=== PATIENT | male | born 1955 | race Caucasian/White ===

== ENCOUNTER → 2024-10-08 09:20 | Outpatient (REF) | payer MEDICARE, OTHER, MEDICAID, SELFPAY ==
[2024-10-08 12:12] LABS: Blood Urea Nitrogen 22 mg/dl (9-20); Calcium 9.2 mg/dl (8.4-10.2); Carbon Dioxide 24 mmol/L (22-30); Chloride 108 mmol/L (98-107); Glucose 98 mg/dl (70-99); Potassium 4.6 mmol/L (3.5-5.1); Sodium 141 mmol/L (135-145); eGFR > 60.00
== END ==
LOC: REG 09:20
PROVIDERS: ATTENDING PHYSICIAN Surgery; FAMILY PHYSICIAN Nurse Practitioner Family
DX: K40.90 Unilateral inguinal hernia, without obstruction or gangrene, not specified as recurrent (principal)
CPT/HCPCS: 36415; 80048

== ENCOUNTER → 2024-10-12 12:57 | Outpatient (REF) | payer MEDICARE, OTHER, MEDICAID, SELFPAY | LOC: RAD 12:57 | PROVIDERS: ATTENDING PHYSICIAN Surgery; FAMILY PHYSICIAN Nurse Practitioner Family | DX: K40.90 Unilateral inguinal hernia, without obstruction or gangrene, not specified as recurrent (principal) | CPT/HCPCS: 36415; 74177; 93005; Q9967 ==

== ENCOUNTER 2024-11-01 06:21 | Day surgery (SDC) | payer MEDICARE, OTHER, MEDICAID, SELFPAY ==
[2024-10-12 14:01] VITALS: BMI 27.1
--- NOTE | 2024-10-13 13:05 | PTCARENOTE ---
Abnormal ECG done 10/12/[address] Whitley, no further interventions requested
[2024-11-01] VITALS (11 sets, daily range): BP systolic 124–174; BP diastolic 79–103; BMI 27.1
[2024-11-01] MEDS: TYLENOL 1000 MG PO (10:34)
[2024-11-01] MEDS: NORMOSOL-R/PLASMALYTE-A 1000 IV (10:51)
[2024-11-01] MEDS: HEPARIN 5000 UNITS SC (12:16)
--- NOTE | 2024-11-01 14:33 | W.IMMPOSTOP ---
Surgical Immed Post Op Note
-
Primary Surgeon: Shara
Assisting: José Miguel YU
Pre-op Diagnosis: Right inguinal hernia
Post-op Diagnosis: Same
Procedure Performed: Robot assisted laparoscopic repair right inguinal hernia
Anesthesia Type: GETA
Specimen / Cultures: None
Estimated Blood Loss: 20cc
Complications: None immediate
Operative Findings: Very large right indirect defect with very deep and thickened sac, totally reduced; XL B/L MID 3D Max
--- NOTE | 2024-11-01 14:35 | OR.RPT ---
Operative Report
Operative Report
Primary Surgeon: Shara
Assisting: José Miguel YU
Pre-op Diagnosis: Right inguinal hernia
Post-op Diagnosis: Same
Procedure Performed: Robot assisted laparoscopic repair right inguinal hernia
Anesthesia Type: GETA
Specimen / Cultures: None
Estimated Blood Loss: 20cc
Complications: None immediate
Operative Findings: Very large right indirect defect with very deep and thickened sac, totally reduced; XL B/L MID 3D Max
Date of Surgery: 11/01/24
Indications: This 68M developed symptomatic right inguinal hernia. Robot assisted laparoscopic repair was elected
Description of procedure:� The patient was taken to the operating room and positioned into supine position. The patient�s abdomen was prepped and draped in standard sterile fashion. A time-out was completed verifying correct patient, procedure,
site, positioning, and implants and special equipment prior to beginning this procedure. The groin hernia was manually reduced.
A stab incision was made in the left upper quadrant, a Veress needle was inserted and proper position was confirmed by aspiration and saline drop test. Following this, pneumoperitoneum was created with insufflation of carbon dioxide to 12 mmHg. Then
a 8mm robotic trocar was inserted above and to the left of the umbilicus. A laparoscope was inserted and the area of initial trocar entry and Veress needle placement were both inspected and no injuries were found. Two 8mm trocars were then placed
lateral to the rectus sheath under direct visualization.
Both inguinal regions were inspected and the median umbilical ligament, medial umbilical ligament, and lateral umbilical fold were identified. Attention was turned to the right groin. The peritoneum was incised transversely above the defect and a
flap was developed in the caudad direction. Catalino�s ligament was identified ultimately dissected to its junction with the iliac vein and the space of Retzius was developed bluntly. The dissection was continued inferiorly to the iliopubic tract,
with care taken to avoid injury to the femoral branch of the genitofemoral nerve and the lateral femoral cutaneous nerve. The cord structures were parietalized.
The direct space was inspected and a hernia defect was not identified. The femoral space was inspected and no defect was identified. The indirect space was inspected and a defect was identified and reduced by gentle traction. The sac was extremely
large, deep and thickened. The canal was inspected and no cord lipoma was identified.
Extra large right MID 3D max mesh was passed through a trocar. The mesh was placed into the preperitoneal space and moved into position to lay flat and completely cover the direct, indirect, and femoral spaces with overlap at the midline. The mesh
was secured into place using 2-0 vicryl suture to Catalino�s ligament medially and laterally. Care was taken to avoid the inferolateral triangles containing the iliac vessels and genital nerves. The peritoneal flap was closed over the mesh and secured
with 2-0 monocryl stratafix suture in similar positions of safety. A flap rent in the sac was closed with 2-0 monocryl stratafix suture. A 14g angiocath was used to decompress the preperitoneal space revealing good seal and all mesh in good position
without folding or curling.
After ensuring adequate hemostasis, the trocars were removed and the pneumoperitoneum allowed to escape. The trocar incisions were closed at the skin level using 4-0 monocryl and topical skin adhesive. All counts were correct and the patient
tolerated the procedure well and was taken to the postanesthesia care unit in stable condition.
The assistance of José Miguel YU was required due to the complexity of the procedure. During the procedure she assisted with retraction, resection, and closure of the wound.
[2024-11-01] MEDS: ZOFRAN 4 MG IV (16:31)
[2024-11-01] MEDS: TYLENOL 650 MG PO (17:11)
== END 2024-11-01 17:53 | disposition home or self-care (01) ==
LOC: SDS 06:21
PROVIDERS: ATTENDING PHYSICIAN Surgery
DX: K40.90 Unilateral inguinal hernia, without obstruction or gangrene, not specified as recurrent (principal)
CPT/HCPCS: 49650; C1781

== ENCOUNTER → 2025-01-11 07:30 | Outpatient (REF) | payer MEDICARE, OTHER, SELFPAY | LOC: RAD 07:30 | PROVIDERS: ATTENDING PHYSICIAN Nurse Practitioner Family | DX: N40.1 Benign prostatic hyperplasia with lower urinary tract symptoms (principal); K76.0 Fatty (change of) liver, not elsewhere classified | CPT/HCPCS: 76700; 76770; 76857 ==